=== PATIENT | male | born 1985 | race Caucasian/White ===

== ENCOUNTER → 2023-04-21 | Emergency (ER) | payer OTHER ==
[~2023-04-21] MED LIST: NA CHLORIDE 0.9% 1,000 ML ONE
[2023-04-21 01:32] LABS: Absolute Lymphocytes (CBC) 2.1 K/uL (0.7-4.9); Lymphocytes % 30.2 % (15.3-44.8); MCV 91.1 fL (80-100); MPV 7.8 fL (7.6-11.3); Platelets 353 thou/uL (152-406); RBC Red Blood Cell Count 4.83 M/uL (4.33-5.43)
[2023-04-21 01:43] LABS: BUN Blood Urea Nitrogen 11 mg/dL (7-18); Bicarbonate 25 mEq/L (21-32); Glomerular Filtration Rate 108 ml/min (=/>90); Glucose Level 101 mg/dL (74-106); Magnesium 2.1 mg/dL (1.6-2.4); Sodium Level 141 mEq/L (136-145)
[2023-04-21 01:45] LABS: Troponin High Sensitivity < 3.0 pg/mL (<58.9)
--- NOTE | 2023-04-21 03:52 | EDPHYS ---
Physician Documentation [facility] Name: Jeremy Olvera Age: 37 yrs Sex: Male : 1985 Arrival Date: 04/21/2023 Time: 00:39 Bed 5 Private MD: ED Physician Thiago Lenz HPI: 04/21 00:46 This 37 yrs old Male presents to ER via EMS with complaints of chest pain. ms3 00:46 37-year-old male with past medical history of hyperlipidemia, low testosterone, ms3 hypothyroidism presents to the emergency department via [facility] with [place] [facility] for chest pain/indigestion began 1 hour prior to arrival. Patient states his discomfort is a 6/10. Patient denies any alleviating or inciting factors.. Historical: - Allergies: 00:46 No Known Allergies; tm6 - Home Meds: 00:46 Ozempic 1 mg/dose (4 mg/3 mL) subcutaneous Pen Injector [Active]; tm6 - PMHx: 00:46 Kidney stone; low testosterone; tm6 - Immunization history:: Adult Immunizations up to date, Client reports having NOT received the Covid vaccine. Flu vaccine is not up to date. - Social history:: Smoking status: Patient denies any tobacco usage or history of. Patient uses alcohol, occasionally. ROS: 00:46 Constitutional: Negative for fever, and chills. ms3 00:46 Respiratory: Negative for shortness of breath, cough, wheezing, and pleuritic chest pain, Abdomen/GI: Negative for abdominal pain, nausea, vomiting, diarrhea, and constipation, MS/Extremity: Negative for injury and deformity, Skin: Negative for injury, rash, and discoloration, 00:46 Cardiovascular: Positive for chest pain, 00:46 All other systems are negative, Exam: 00:46 Constitutional: This is a well developed, well nourished patient who is awake, alert, ms3 and in no acute distress. Neck: Trachea midline, no cervical lymphadenopathy. Supple, full range of motion without nuchal rigidity, or vertebral point tenderness. No Meningismus. Chest/axilla: Normal chest wall appearance and motion. Nontender with no deformity. Respiratory: Lungs have equal breath sounds bilaterally, clear to auscultation and percussion. No rales, rhonchi or wheezes noted. No increased work of breathing, no retractions or nasal flaring. 00:46 Cardiovascular: Rate: tachycardic, Rhythm: regular, Pulses: no pulse deficits are appreciated, Heart sounds: normal, normal S1and S2, 00:46 ECG was reviewed by the Attending Physician. Vital Signs: 00:46 BP 148 / 99; Pulse 109; Resp 17; Temp 98.6; Pulse Ox 99% on R/A; Weight 107.05 kg; tm6 Height 5 ft. 10 in. ; Pain 6/10; 01:28 BP 131 / 85; Pulse 86; Resp 19; Pulse Ox 98% on R/A; tm6 02:43 BP 124 / 68; Pulse 80; Resp 20; Pulse Ox 96% on R/A; Pain 0/10; tm6 03:37 BP 121 / 76; Pulse 84; Pulse Ox 96% on R/A; Pain 0/10; tm6 00:46 Body Mass Index 33.86 (107.05 kg, 177.8 cm) tm6 00:46 Pain Scale: Adult tm6 02:43 Pain Scale: Adult tm6 03:37 Pain Scale: Adult tm6 MDM: 00:45 Patient medically screened. ms3 03:52 Differential diagnosis: abnormal EKG, acute myocardial infarction, chest wall pain, ms3 gastroesophageal reflux disease (GERD). HEART Score: History: Slightly Suspicious (0), ECG: Normal (0), Age: < or = 45 years (0), Risk Factors: 1 or 2 risk factors (1), Troponin: < or = 1 x Normal Limit (0), Total Score = 1. Data reviewed: vital signs, nurses notes, lab test result(s), EKG, radiologic studies, and as a result, I will discharge patient. Independent interpretation of the following test(s) in the Emergency Department EKG: See my EKG interpretation above. Test considered but Not performed: X-ray: Patient declined CXR. Historians other than the Patient: EMS: [facility]. Counseling: I had a detailed discussion with the patient and/or guardian regarding the historical points, exam findings, and any diagnostic results supporting the discharge/admit diagnosis, lab results, radiology results, the need for outpatient follow up, to return to the emergency department if symptoms worsen or persist or if there are any questions or concerns that arise at home. Special discussion: Based on the patient's history, exam, and Dx evaluation, there is no indication for emergent intervention or inpatient Tx. It is understood by the patient/guardian that if the Sx's persist or worsen they need to return immediately for re-evaluation. ED course: Discussed labs, EKG with patient. Patient to follow-up with Dr. Romero in 1 to 2 days. Patient understands and agrees with plan. All questions were answered. Return precautions discussed include worsening symptoms, or any other concerns. 04/21 00:46 Order name: Basic Metabolic Panel; Complete Time: 01:46 ms3 04/21 00:46 Order name: CBC with Diff; Complete Time: 01:44 ms3 04/21 00:46 Order name: Magnesium; Complete Time: :46 ms3 04/21 00:46 Order name: Troponin HS; Complete Time: 01:46 ms3 04/21 01:30 Order name: Legal Draw EDMS 04/21 02:58 Order name: Troponin HS; Complete Time: 03:49 vc1 04/21 00:46 Order name: EKG; Complete Time: 00:46 ms3 04/21 00:46 Order name: Cardiac monitoring; Complete Time: 00:53 ms3 04/21 00:46 Order name: EKG - Nurse/Tech; Complete Time: 00:53 ms3 04/21 00:46 Order name: IV Saline Lock; Complete Time: 01:14 ms3 04/21 00:46 Order name: Labs collected and sent; Complete Time: 01:14 ms3 04/21 00:46 Order name: O2 Per Protocol; Complete Time: 00:54 ms3 04/21 00:46 Order name: O2 Sat Monitoring; Complete Time: 00:54 ms3 EC:46 Rate is 109 beats/min. Rhythm is regular. Left axis deviation noted. AL interval is ms3 normal. QRS interval is normal. Clinical impression: Sinus tachycardia. Interpreted by me. Reviewed by me. Administered Medications: 01:15 Drug: NS 0.9% IV 1000 ml IV at 1 bolus Per protocol; 1000 mL bolus Route: IV; Rate: 1 tm6 bolus; Site: right antecubital; Disposition Summary: 04/21/23 03:52 Discharge Ordered Notes: Location: Home ms3 Condition: Stable ms3 Diagnosis - Chest pain, unspecified ms3 Followup: ms3 - With: Matti Sesay MD - When: 1 - 2 days - Reason: Recheck today's complaints Discharge Instructions: - Discharge Summary Sheet ms3 - Nonspecific Chest Pain, Adult ms3 Forms: - Medication Reconciliation Form ms3 - Thank You Letter ms3 - Antibiotic Education ms3 - Prescription Opioid Use ms3 - Patient Portal Instructions ms3 - Leadership Thank You Letter ms3 Signatures: Dispatcher [employer] EDMS Thiago Lenz DO DO ms3 Madhav Ortiz RN RN tm6 Corrections: (The following items were deleted from the chart) 01:17 00:46 Chest Single View+[email or web address] ordered. EDMS EDMS
--- NOTE | 2023-04-21 03:52 | ER ---
Nurse's Notes [facility] Name: Jeremy Olvera Age: 37 yrs Sex: Male : 1985 Arrival Date: 04/21/2023 Time: 00:39 Bed 5 Private MD: Diagnosis: Chest pain, unspecified Presentation: 04/21 00:43 Chief complaint: EMS states: toned out for chest pain that started one hour ago. Chest tm6 pain on left side of chest, with nausea. 324mg of aspirin given. Patient reported he recently started taking ozempic. Coronavirus screen: Client denies travel out of the [place] in the last 14 days. Ebola Screen: Patient negative for fever greater than or equal to 101.5 degrees Fahrenheit, and additional compatible Ebola Virus Disease symptoms Patient denies exposure to infectious person. Patient denies travel to an Ebola-affected area in the 21 days before illness onset. No symptoms or risks identified at this time. Initial Sepsis Screen: Does the patient meet any 2 criteria? No. Patient's initial sepsis screen is negative. Does the patient have a suspected source of infection? No. Patient's initial sepsis screen is negative. Risk Assessment: Do you want to hurt yourself or someone else? Patient reports no desire to harm self or others. Onset of symptoms was April 21, 2023 at 00:00. 00:43 Method Of Arrival: EMS: [facility] tm6 00:43 Acuity: SHADIA 3 tm6 Triage Assessment: 00:46 General: Appears in no apparent distress. Behavior is calm. Pain: Complains of pain in tm6 chest Pain currently is 6 out of 10 on a pain scale. EENT: No signs and/or symptoms were reported regarding the EENT system. Neuro: Level of Consciousness is awake, alert, obeys commands, Oriented to person, place, time, situation. Cardiovascular: Reports chest pain, Capillary refill < 3 seconds Patient's skin is warm and dry. Respiratory: Airway is patent Respiratory effort is even, unlabored, Respiratory pattern is regular, symmetrical. GI: Abdomen is flat, non-distended. : No signs and/or symptoms were reported regarding the genitourinary system. Derm: No signs and/or symptoms reported regarding the dermatologic system. Musculoskeletal: No signs and/or symptoms reported regarding the musculoskeletal system. Historical: - Allergies: 00:46 No Known Allergies; tm6 - Home Meds: 00:46 Ozempic 1 mg/dose (4 mg/3 mL) subcutaneous Pen Injector [Active]; tm6 - PMHx: 00:46 Kidney stone; low testosterone; tm6 - Immunization history:: Adult Immunizations up to date, Client reports having NOT received the Covid vaccine. Flu vaccine is not up to date. - Social history:: Smoking status: Patient denies any tobacco usage or history of. Patient uses alcohol, occasionally. Screenin:51 [facility] ED Fall Risk Assessment (Adult) History of falling in the last 3 months, tm6 including since admission No falls in past 3 months (0 pts). Abuse screen: Denies threats or abuse. Denies injuries from another. Nutritional screening: No deficits noted. Tuberculosis screening: No symptoms or risk factors identified. Assessment: 00:51 Reassessment: see triage assessment. tm6 01:28 Reassessment: Patient appears in no apparent distress at this time. Patient and/or tm6 family updated on plan of care and expected duration. Pain level reassessed. Patient is alert, oriented x 3, equal unlabored respirations, skin warm/dry/pink. 02:43 Reassessment: Patient appears in no apparent distress at this time. Patient and/or tm6 family updated on plan of care and expected duration. Pain level reassessed. Patient is alert, oriented x 3, equal unlabored respirations, skin warm/dry/pink. 03:37 Reassessment: Patient appears in no apparent distress at this time. Patient and/or tm6 family updated on plan of care and expected duration. Pain level reassessed. Patient is alert, oriented x 3, equal unlabored respirations, skin warm/dry/pink. Vital Signs: 00:46 BP 148 / 99; Pulse 109; Resp 17; Temp 98.6; Pulse Ox 99% on R/A; Weight 107.05 kg; tm6 Height 5 ft. 10 in. ; Pain 6/10; 01:28 BP 131 / 85; Pulse 86; Resp 19; Pulse Ox 98% on R/A; tm6 02:43 BP 124 / 68; Pulse 80; Resp 20; Pulse Ox 96% on R/A; Pain 0/10; tm6 03:37 BP 121 / 76; Pulse 84; Pulse Ox 96% on R/A; Pain 0/10; tm6 00:46 Body Mass Index 33.86 (107.05 kg, 177.8 cm) tm6 00:46 Pain Scale: Adult tm6 02:43 Pain Scale: Adult tm6 03:37 Pain Scale: Adult tm6 ED Course: 00:41 Patient arrived in ED. ms3 00:41 Thiago Lenz DO is Attending Physician. ms3 00:46 Triage completed. tm6 00:51 Arm band placed on right wrist. tm6 00:51 Patient has correct armband on for positive identification. Bed in low position. Call tm6 light in reach. Side rails up X2. law enforcement at bedside. Provided Education on: plan of care. Client placed on continuous cardiac and pulse oximetry monitoring. NIBP monitoring applied. monitoring manager on. 00:51 No provider procedures requiring assistance completed. tm6 01:15 Inserted saline lock: 20 gauge in right antecubital area, using aseptic technique. pm6 Blood collected. 03:03 Troponin HS Sent. pm6 03:52 Matti Sesay MD is Referral Physician. ms3 03:58 IV discontinued, intact, bleeding controlled, No redness/swelling at site. Pressure jb4 dressing applied. Administered Medications: 01:15 Drug: NS 0.9% IV 1000 ml IV at 1 bolus Per protocol; 1000 mL bolus Route: IV; Rate: 1 tm6 bolus; Site: right antecubital; Medication: 00:51 VIS not applicable for this client. tm6 Outcome: 03:52 Discharge ordered by . ms3 03:57 Discharged to Law Enforcement jb4 03:57 Condition: stable 03:57 Discharge instructions given to patient, Instructed on discharge instructions, follow up and referral plans. Demonstrated understanding of instructions, follow-up care, 03:58 Patient left the ED. jb4 Signatures: Srinivas Jiménez RN RN jb4 Thiago Lenz DO DO ms3 Madhav Ortiz RN RN tm6 Le Kathleen pm6
[2023-04-21 04:36] VITALS: BP 121/76; TEMP 98.6; O2SAT 96
--- NOTE | 2023-04-22 16:55 | EKG ---
Test Date: 2023-04-21 Test Time: 00:39:09 Dietetics Professor: RV MEASUREMENT RESULTS: Intervals: Rate: 109 OK: 162 QRSD: 94 QT: 340 QTc: 457 [place]: P: 55 OK: 162 QRS: -31 T: 20 INTERPRETIVE STATEMENTS: Sinus tachycardia Left axis deviation Septal infarct, age undetermined Abnormal ECG No previous ECG available for comparison Electronically Signed On 04-22-23 16:51:56 [employer] by Matti Sesay
== END ==
LOC: ER 00:39
DX: R07.89 Other chest pain (principal); Z87.442 Personal history of urinary calculi; Z28.310 Unvaccinated for COVID-19
CPT/HCPCS: 93005; 85025; 80048; 36415 ×2; 83735; 84484 ×2; 99285; J7030